=== PATIENT | male | born 1960 | race Caucasian/White ===

== ENCOUNTER 2018-09-25 10:34 | Inpatient (IN) | payer MEDICARE, MEDICAID, OTHER | END 2018-10-04 14:35 | LOC: MED 3N 10:34 → ICU 2S 09-28 04:31 → CICU 2S 10-02 10:55 → ICU 2S 09-26 11:33 → MED 3N 09-28 13:00 | PROC: 02100A3 Bypass Coronary Artery, One Artery from Coronary Artery with Autologous Arterial Tissue, Open Approach (ICD-10-PCS; principal; 2018-09-26 06:51) | PROC: 02UG08Z Supplement Mitral Valve with Zooplastic Tissue, Open Approach (ICD-10-PCS; 2018-09-26 06:51) | PROC: 0211099 Bypass Coronary Artery, Two Arteries from Left Internal Mammary with Autologous Venous Tissue, Open Approach (ICD-10-PCS; 2018-09-26 06:51) | PROC: 0JH606Z Insertion of Pacemaker, Dual Chamber into Chest Subcutaneous Tissue and Fascia, Open Approach (ICD-10-PCS; 2018-09-26 06:51) | PROC: 02H63JZ Insertion of Pacemaker Lead into Right Atrium, Percutaneous Approach (ICD-10-PCS; 2018-09-26 06:51) | PROC: 02HK3JZ Insertion of Pacemaker Lead into Right Ventricle, Percutaneous Approach (ICD-10-PCS; 2018-09-26 06:51) | DX: I25.110 Atherosclerotic heart disease of native coronary artery with unstable angina pectoris (principal); I50.21 Acute systolic (congestive) heart failure; I34.0 Nonrheumatic mitral (valve) insufficiency; I44.1 Atrioventricular block, second degree ==

== ENCOUNTER 2018-11-17 17:19 | Inpatient (IN) | payer MEDICARE, MEDICAID | END 2018-11-20 16:35 | disposition home or self-care (01) | LOC: CICU 2S 17:19 → PCU 3S 11-18 12:15 | DX: I47.2 Ventricular tachycardia (principal); I25.10 Atherosclerotic heart disease of native coronary artery without angina pectoris; I25.5 Ischemic cardiomyopathy; Z86.73 Personal history of transient ischemic attack (TIA), and cerebral infarction without residual deficits ==